=== PATIENT | male | born 1970 | race Two or more races ===

== ENCOUNTER 2022-10-18 04:15 | Day surgery (SDC) | payer OTHER ==
[2022-10-16 14:29] VITALS: BMI 21.6
[2022-10-18] MEDS ORDERED: BUPIVACAINE LIPOSOME/PF (EXPAREL) 266 MG/20 ML VIAL ONE (07:45)
[2022-10-18] MEDS ORDERED: BUPIVACAINE HCL/PF 0.5% (5MG/ML) 10 ML VIAL ONE (07:46)
[2022-10-18] MEDS ORDERED: ROCURONIUM BROMIDE 50 MG/5 ML SYRINGE ONE ×2 (07:47→08:56)
[2022-10-18] MEDS ORDERED: SUCCINYLCHOLINE CHLORIDE 200 MG/10 ML SYRINGE ONE (07:48)
[2022-10-18] MEDS ORDERED: MIDAZOLAM HCL 2 MG/2 ML SINGLE DOSE VIAL ONE (07:48)
[2022-10-18] MEDS ORDERED: PROPOFOL 20 ML ONE ×2 (07:48→07:52)
[2022-10-18] MEDS ORDERED: HYDROmorphone HCl 2 MG/ML VIAL ONE (08:32)
[2022-10-18] MEDS ORDERED: ceFAZolin SODIUM 1 GM VIAL IVPB ONE (08:45)
[2022-10-18] MEDS ORDERED: oxyCODONE HCL 5 MG TABLET PO PRN (10:08)
[2022-10-18] MEDS ORDERED: ONDANSETRON 4 MG/2 ML VIAL IVPUSH PRN (10:08)
[2022-10-18] MEDS ORDERED: LACTATED RINGERS SOLUTION 1,000 ML IV SCH (10:15)
[2022-10-18] MEDS ORDERED: GLYCOPYRROLATE 0.2 MG/1 ML VIAL ONE ×3 (10:28)
[2022-10-18] MEDS ORDERED: NEOSTIGMINE METHYLSULFATE 0.5 MG/1 ML - 10 ML MDV ONE (10:28)
[2022-10-18] MEDS ORDERED: oxyCODONE HCL 5 MG TABLET ONE (14:11)
[2022-10-18 14:33] VITALS: RESP 18; TEMP 97.2
[2022-10-18 14:36] VITALS: BP 145/90; PULSE 55
== END 2022-10-18 14:30 | disposition home or self-care (01) ==
LOC: JASU-SURG 04:15
PROVIDERS: ATTEND Surgery
PROC: 0YUA4JZ Supplement Bilateral Inguinal Region with Synthetic Substitute, Percutaneous Endoscopic Approach (ICD-10-PCS; principal; 2022-10-18 08:00)
DX: K40.20 Bilateral inguinal hernia, without obstruction or gangrene, not specified as recurrent (principal)
CPT/HCPCS: 49650; S2900; 86850; 86900; 86901; 94760; C1781